=== PATIENT | female | born 1970 | race Caucasian/White ===

== ENCOUNTER 2018-11-22 06:23 | Day surgery (SDC) | payer OTHER, BC ==
[2018-11-22] MEDS ORDERED: LIDOCAINE 2% (SDV) 5 ML INJ (07:21)
[2018-11-22] MEDS ORDERED: PROPOFOL 60 ML (07:21)
[2018-11-22] MEDS ORDERED: LABETALOL HCL 20MG INJ IV (07:30)
[2018-11-22] MEDS ORDERED: hydrALAzine 20 MG INJ IV (07:30)
[2018-11-22] MEDS ORDERED: FENTAnyl 50 MCG/ML VIAL IV ×2 (07:30)
[2018-11-22] MEDS ORDERED: EPHEDrine 25 MG/5 ML SYG IV (07:30)
== END 2018-11-22 10:51 | disposition home or self-care (01) ==
LOC: GIL 06:23
DX: Z12.11 Encounter for screening for malignant neoplasm of colon (principal); D12.5 Benign neoplasm of sigmoid colon; D12.8 Benign neoplasm of rectum; K64.4 Residual hemorrhoidal skin tags
CPT/HCPCS: 45380; 84703; 88305